=== PATIENT | male | born 1975 | race Caucasian/White ===

== ENCOUNTER 2019-03-27 14:02 | Inpatient (IN) | payer OTHER ==
[2019-03-27 17:27] VITALS: BMI 26.7
--- NOTE | 2019-03-27 18:01 | HP ---
CIWA Score - Admission Criteria [facility] Guidelines: Admission for Medically Managed Detox: Requires at least one of the followin. CIWA greater than 12 2. Seizures within the past 24 hours 3. Delirium tremens within the past 24 hours 4. Hallucinations within the past 24 hours 5. Acute intervention needed for co occurring medical disorder 6. Acute intervention needed for co occurring psychiatric disorder 7. Severe withdrawal that cannot be handled at a lower level of care (continued vomiting, continued diarrhea, abnormal vital signs) requiring intravenous medication and/or fluids 8. Admission ROS [facility] Chief Complaint: Withdrawal symptoms Allergies/Adverse Reactions: Allergies Allergy/AdvReac Type Severity Reaction Status Date / Time No Known Allergies Allergy Verified 03/27/19 17:09 History of Present Illness: 43 y.o. man with an extensive history crystal meth, ghb, xanax and Klonopin dependence is here seeking rehab services. He reports he was abstinent of illicit drug use for 3 years but relapsed in 08/2018. He reports he detoxed himself in the last 7 days at home Exam Limitations: No Limitations - Ebola screening Have you traveled outside of the country in the last 21 days: No Have you had contact with anyone from an Ebola affected area: No Do you have a fever: No - Review of Systems Constitutional: Diaphoresis, Unintentional Wgt. Loss EENT: reports: Tearing Respiratory: reports: No Symptoms reported Cardiac: reports: No Symptoms Reported GI: reports: No Symptoms Reported : reports: Burning Musculoskeletal: reports: No Symptoms Reported Integumentary: reports: No Symptoms Reported Neuro: reports: No Symptoms reported Endocrine: reports: No Symptoms Reported Hematology: reports: No Symptoms Reported Psychiatric: reports: Depressed Other Systems: Reviewed and Negative Patient History - Patient Medical History Hx Anemia: No Hx Asthma: No Hx Chronic Obstructive Pulmonary Disease (COPD): No Hx Cancer: No Hx Cardiac Disorders: No Hx Congestive Heart Failure: No Hx Hypertension: No Hx Hypercholesterolemia: No Hx Pacemaker: No HX Cerebrovascular Accident: No Hx Seizures: No Hx Dementia: No Hx Gastrointestinal Disorders: No Hx Liver Disease: No Hx Genitourinary Disorders: No Hx Sexually Transmitted Disorders: Yes (Reports being treated for syphillis, gonorrhea and chlamydia) Hx Renal Disease (ESRD): No Hx Thyroid Disease: No Hx Human Immunodeficiency Virus (HIV): Yes (Dx: 2009 on medications ) Hx Hepatitis C: No Hx Depression: Yes Hx Suicide Attempt: No Hx Bipolar Disorder: No Hx Schizophrenia: No - Patient Surgical History Past Surgical History: Yes Hx Appendectomy: Yes (1996) Other Surgical History: Hydrocele 1988 Anesthesia Reaction: No - PPD History Previous Implant?: Yes Documented Results: Negative w/o proof PPD to be Administered?: Yes - Reproductive History Patient is a Female of Child Bearing Age (11 -55 yrs old): No - Smoking Cessation Smoking history: Never smoked - Substance & Tx. History Hx Alcohol Use: No Hx Substance Use: Yes Substance Use Type: Tranquilizers Hx Substance Use Treatment: Yes (Rehab 3 years ago at [facility] ) - Substances abused Benzodiazepine (Klonopin) Substance route: Oral Frequency: Daily Amount used: 8MG Age of first use: 43 Date of last use: 03/19/19 Alprazolam (Xanax) Substance route: Oral Frequency: Daily Amount used: 4MG Age of first use: 41 Date of last use: 03/19/19 Crystal meth Substance route: Injection Frequency: 1-3 times last 30 days Amount used: Unsure Age of first use: 25 Date of last use: 03/19/19 GHB Substance route: Oral Frequency: 3-6 times per week Amount used: 1.5ml Age of first use: 25 Date of last use: 03/19/19 Family Disease History - Family Disease History Family Disease History: CA: Father (Nasal cancer ), Mother (Ovarian cancer- ) Admission Physical Exam S - Vital Signs Vital Signs: Vital Signs - 24 hr 03/27/19 03/27/19 17:09 17:40 Temperature 98.2 F 98.2 F Pulse Rate 78 78 Respiratory 20 20 Rate Blood Pressure 132/91 132/91 - Physical General Appearance: Yes: Tremorous, Anxious HEENTM: Yes: Hearing grossly Normal, Normocephalic, Normal Voice Respiratory: Yes: Chest Non-Tender, Lungs Clear, Normal Breath Sounds, No Respiratory Distress, No Accessory Muscle Use Neck: Yes: Within Normal Limits Breast: Yes: Breast Exam Deferred Cardiology: Yes: Regular Rhythm, Regular Rate Abdominal: Yes: Normal Bowel Sounds, Non Tender, Flat Genitourinary: Yes: Burning Back: Yes: Within Normal Limits, Normal Inspection Musculoskeletal: Yes: full range of Motion, Gait Steady, Pelvis Stable Extremities: Yes: Normal Capillary Refill, Normal Inspection, Normal Range of Motion, Non-Tender Neurological: Yes: Alert, Normal Mood/Affect, Normal Response Integumentary: Yes: Normal Color, Dry, Warm Lymphatic: Yes: Within Normal Limits - Diagnostic (1) Benzodiazepine dependence Current Visit: Yes Status: Chronic (2) HIV disease Current Visit: Yes Status: Chronic (3) History of syphilis Current Visit: Yes Status: Resolved (4) Low testosterone in male Current Visit: Yes Status: Suspected (5) History of thrombocytopenia Current Visit: Yes Status: Suspected (6) Gamma-hydroxybutyrate (GHB) use disorder, moderate, dependence Current Visit: Yes Status: Chronic Cleared for Admission S - Detox or Rehab [facility] Level of Care: Observation Bed Detox Regimen/Protocol: Not Applicable Claeared for Rehab Admission: Yes Breathalyzer - Breathalyzer Breathalyzer: 0 Urine Drug Screen - Test Device Lot number: [id number] Expiration date: 10/24/20 - Control Is test valid?: Yes - Results Drug screen NEGATIVE: Yes Inpatient Rehab Admission - Rehab Decision to Admit Inpatient rehab admission?: Yes - Initial Determination Are CD services needed?: Yes Free of communicable disease: No Not in need of hospitalization: Yes - Rehab Admission Criteria Previous failed treatment: Yes Poor recovery environment: Yes Comorbidities: Yes Lacks judgement: Yes Patient is meeting Inpatient Rehab admission criteria:: Yes
[2019-03-27] MEDS ORDERED: MAGNESIUM CITRATE 300 ML BOTTLE PO PRN (18:18)
[2019-03-27] MEDS ORDERED: ACETAMINOPHEN 325 MG TABLET (FP) PO PRN (18:18)
[2019-03-27] MEDS ORDERED: LOPERAMIDE HCL 2 MG CAPSULE PO PRN (18:18)
[2019-03-27] MEDS ORDERED: guaiFENesin 200 MG/10 ML 10 ML UNIT-DOSE CUPS PO PRN (18:18)
[2019-03-27] MEDS ORDERED: MENTHOL/PHENOL 1 EACH UD MM PRN (18:18)
[2019-03-27] MEDS ORDERED: hydrOXYzine PAMOATE 50 MG CAPSULE (FP) PO PRN (18:18)
[2019-03-27] MEDS ORDERED: P-EPHED 60MG/TRIPROLIDI 2.5MG TABLET PO PRN (18:18)
[2019-03-27] MEDS ORDERED: MAG HYDROX/AL HYDROX/SIMETH 30 ML UNIT-DOSE CUP PO PRN (18:18)
[2019-03-27] MEDS ORDERED: MAGNESIUM HYDROX 2400MG/30ML ORAL SUSPENSION 30 ML CUP PO PRN (18:18)
[2019-03-27] MEDS ORDERED: IBUPROFEN 400 MG TABLET (FP) PO PRN (18:18)
[2019-03-27] MEDS ORDERED: TUBERCULIN PPD 5 TU/0.1ML VIAL ID ONE (21:24)
[2019-03-27] MEDS: THIAMINE HCL 100 MG TABLET (FP) PO SCH (21:25)
[2019-03-27] MEDS: MELATONIN 5 MG TABLETS PO PRN (21:25)
--- NOTE | 2019-03-28 08:26 | EKG ---
Test Reason : Blood Pressure : / mmHG Vent. Rate : 074 BPM Atrial Rate : 074 BPM P-R Int : 154 ms QRS Dur : 088 ms QT Int : 356 ms P-R-T Axes : 040 006 034 degrees QTc Int : 395 ms NORMAL SINUS RHYTHM NORMAL ECG NO PREVIOUS ECGS AVAILABLE Confirmed by ALO PRINCE, GRACE ([id number]) on 03/28/2019 8:26:00 AM Referred By: Confirmed By:GRACE PRAJAPATI MD
[2019-03-28] MEDS: BICTEGRAV/EMTRICIT/TENOFOV (BIKTARVY) 50-200-25 MG TABLET PO SCH (09:00)
[2019-03-28] MEDS: PRENATAL VITAMINS W/ FOLIC ACID TABLET (FP) PO SCH (09:38)
[2019-03-28] MEDS ORDERED: EMTRICITAB/RILPIVIRI/TENOF ALA (ODEFSEY) TABLET PO SCH (10:00)
[2019-03-28 10:23] LABS: HEMATOCRIT 46.6 % (35.4-49); HEMOGLOBIN 15.8 GM/dL (11.7-16.9); MCH 31.4 pg (25.7-33.7); MCHC 33.9 g/dl (32.0-35.9); MEAN CELL VOLUME 92.9 fl (80-96); PLATELET COUNT 169 K/MM3 (134-434); RBC 5.02 M/mm3 (4.00-5.60); RDW 13.5 % (11.9-15.9); WHITE BLOOD COUNT 6.6 K/mm3 (4.0-10.0)
[2019-03-28 10:27] LABS: ALBUMIN 3.8 g/dl (3.4-5.0); ALK PHOS 63 U/L (45-117); ANION GAP 7 MMOL/L (8-16); BILIRUBIN,TOTAL 0.3 mg/dL (0.2-1); BLOOD UREA NITROGEN 13 mg/dL (7-18); CALCIUM 9.2 mg/dL (8.5-10.1); CHLORIDE 106 mmol/L (98-107); CO2 28 mmol/L (21-32); CREATININE 1.7 mg/dL (0.55-1.3); GLUCOSE,RANDOM 141 mg/dL (74-106); POTASSIUM 4.1 mmol/L (3.5-5.1); SGOT/AST 16 U/L (15-37); SGPT/ALT 30 U/L (13-61); SODIUM 142 mmol/L (136-145)
[2019-03-28 17:26] LABS: EPI CELLS 0.4 /HPF (0-5/HPF); PH,URINE 8.5 (5.0-8.0); URINE APPEARANCE CLOUDY; URINE BACTERIA 13.5 /hpf (NEGATIVE); URINE BILIRUBIN NEGATIVE (NEGATIVE); URINE CASTS 4 /lpf (0-8); URINE COLOR YELLOW; URINE GLUCOSE (UA) NEGATIVE (NEGATIVE); URINE KETONE NEGATIVE (NEGATIVE); URINE LEUK ESTERASE 3+ (NEGATIVE); URINE NITRITE POSITIVE (NEGATIVE); URINE PROTEIN NEGATIVE (NEGATIVE); URINE RBC 10 /hpf (0-4); URINE UROBILINOGEN 0.2 mg/dL (0.2-1.0); URINE WBC 400 /hpf (0-5)
[2019-03-28] MEDS: MELATONIN 5 MG TABLETS PO PRN (21:21)
[2019-03-28] MEDS: THIAMINE HCL 100 MG TABLET (FP) PO SCH (21:21)
--- NOTE | 2019-03-28 21:46 | PN ---
[facility] Progress Note Note: ASKED TO SEE PATIENT FOR C/O PINK URINE. CLIENT REPORTS LOWER ABD PAIN X2 DAYS WORSE WITH URINATION ASSOCIATED SPASM LIKE PAIN AND BURNING WHEN URINATING. HE REPORTS SEEING BLOOD IN HIS URINE TODAY. DENIES FEVERS CHILL, SOB, C.P.N/V/D, DIZZINESS. REQUESTING GC/CHL TESTING . Laboratory Tests 03/27/19 03/28/19 03/28/19 14:25 07:45 08:00 WBC 6.6 RBC 5.02 Hgb 15.8 Hct 46.6 MCV 92.9 MCH 31.4 MCHC 33.9 RDW 13.5 Plt Count 169 MPV 9.0 Sodium 142 Potassium 4.1 Chloride 106 Carbon Dioxide 28 Anion Gap 7 L BUN 13 Creatinine 1.7 H Creat Clearance w eGFR 43.80 Random Glucose 141 H Calcium 9.2 Total Bilirubin 0.3 AST 16 ALT 30 Alkaline Phosphatase 63 Total Protein 7.0 Albumin 3.8 Urine Color Yellow Urine Appearance Cloudy Urine pH 8.5 H Ur Specific [place] 1.009 L Urine Protein Negative Urine Glucose (UA) Negative Urine Ketones Negative Urine Blood 1+ H Urine Nitrite Positive H Urine Bilirubin Negative Urine Urobilinogen 0.2 Ur Leukocyte Esterase 3+ H Urine WBC (Auto) 400 Urine RBC (Auto) 10 Urine Casts (Auto) 4 U Epithel Cells (Auto) 0.4 Urine Bacteria (Auto) 13.5 AWAKE/ALERT/NAD LABS NOTED URINE: +NITRATES +BLOOD +LEUKOCYTE ESTERASE A- UTI P- URINE C&S START MACRODANTIN 100MG Q6 H X 7DAYS AFTER URINE IS SENT CONT TO MONITOR CLINICALLY GC/CHL TESTING ORDERED
[2019-03-28] MEDS: NITROFURANTOIN MACROCRYSTAL 50 MG CAPSULE (FP) PO SCH (23:19)
[2019-03-29] MEDS: NITROFURANTOIN MACROCRYSTAL 50 MG CAPSULE (FP) PO SCH ×3 (06:36→17:02)
[2019-03-29 07:03] VITALS: TEMP 97.7
[2019-03-29] MEDS: BICTEGRAV/EMTRICIT/TENOFOV (BIKTARVY) 50-200-25 MG TABLET PO SCH (08:47)
[2019-03-29] MEDS: PRENATAL VITAMINS W/ FOLIC ACID TABLET (FP) PO SCH (10:01)
[2019-03-29] MEDS: THIAMINE HCL 100 MG TABLET (FP) PO SCH (21:27)
[2019-03-29] MEDS: MELATONIN 5 MG TABLETS PO PRN (21:27)
[2019-03-30] MEDS: NITROFURANTOIN MACROCRYSTAL 50 MG CAPSULE (FP) PO SCH ×2 (00:11→06:23)
[2019-03-30 06:38] VITALS: BP 120/73; PULSE 75
[2019-03-30] MEDS: BICTEGRAV/EMTRICIT/TENOFOV (BIKTARVY) 50-200-25 MG TABLET PO SCH (08:02)
--- NOTE | 2019-03-30 10:15 | PN ---
[facility] Progress Note Note: PT DECLINED TO CONTINUE WITH REHAB FOR PERSONAL REASONS STATING "HERE IS NOT FOR ME, I'M AN OUTDOOR PERSON. BUT I'M HAPPY TO HAVE COME HERE AND RE-FOCUS". ALL EFORTS TO ENCOURAGE PT TO STAY IN TREATMENT HERE WAS UNSUCCESSFUL. PT REPORTS HE WILL BE GOING [facility]. PT REPORTS HE HAS A PCP, DR ELIEL DOSS AT [facility] ON [address] [place] [address]. PT REPORTS HE HAS HIS ANTIRETROVIRAL MEDICATION WITH HIM. PT WA BEING TREATED WITH NITROFURANTOIN FOR URINARY TRACT INFECTION SYMPTOMS. Home Medications Medication Instructions Recorded Bictegrav/Emtricit/Tenofov Ala 1 each PO MONTHLY 03/27/19 [Biktarvy 50-200-25 mg Tablet] Emtricitab/Rilpiviri/Tenof Ala 1 each PO DAILY 03/27/19 [Odefsey Tablet] Emtricitab/Rilpiviri/Tenof Ala 1 each PO DAILY 03/27/19 [Odefsey Tablet] Gabapentin [Neurontin -] 300 mg PO HS 03/27/19 Meclizine HCl [Antivert -] 25 mg PO TID 03/27/19 Nitrofurantoin Macrocrystal 100 mg PO Q6HPO #28 capsule 03/30/19 [Macrodantin -] Vital Signs - 24 hr 03/30/19 03/30/19 03/30/19 00:30 03:30 06:37 Temperature 97.7 F Pulse Rate 75 Respiratory 16 16 18 Rate Blood Pressure 120/73 Laboratory Tests 03/27/19 03/28/19 03/28/19 14:25 07:45 07:45 WBC RBC Hgb Hct MCV MCH MCHC RDW Plt Count MPV Sodium 142 Potassium 4.1 Chloride 106 Carbon Dioxide 28 Anion Gap 7 L BUN 13 Creatinine 1.7 H Creat Clearance w eGFR 43.80 Random Glucose 141 H Calcium 9.2 Total Bilirubin 0.3 AST 16 ALT 30 Alkaline Phosphatase 63 Total Protein 7.0 Albumin 3.8 Urine Color Yellow Urine Appearance Cloudy Urine pH 8.5 H Ur Specific [place] 1.009 L Urine Protein Negative Urine Glucose (UA) Negative Urine Ketones Negative Urine Blood 1+ H Urine Nitrite Positive H Urine Bilirubin Negative Urine Urobilinogen 0.2 Ur Leukocyte Esterase 3+ H Urine WBC (Auto) 400 Urine RBC (Auto) 10 Urine Casts (Auto) 4 U Epithel Cells (Auto) 0.4 Urine Bacteria (Auto) 13.5 RPR Titer Nonreactive Hep C Ab Diagnostic 03/28/19 03/28/19 07:45 08:00 WBC 6.6 RBC 5.02 Hgb 15.8 Hct 46.6 MCV 92.9 MCH 31.4 MCHC 33.9 RDW 13.5 Plt Count 169 MPV 9.0 Sodium Potassium Chloride Carbon Dioxide Anion Gap BUN Creatinine Creat Clearance w eGFR Random Glucose Calcium Total Bilirubin AST ALT Alkaline Phosphatase Total Protein Albumin Urine Color Urine Appearance Urine pH Ur Specific [place] Urine Protein Urine Glucose (UA) Urine Ketones Urine Blood Urine Nitrite Urine Bilirubin Urine Urobilinogen Ur Leukocyte Esterase Urine WBC (Auto) Urine RBC (Auto) Urine Casts (Auto) U Epithel Cells (Auto) Urine Bacteria (Auto) RPR Titer Hep C Ab Diagnostic <0.1 Microbiology 03/29/19 09:53 Urine - Urine Clean Catch Urine Culture - Final NO GROWTH OBTAINED PENDING SEROLOGY TESTS: C. TRICHOMATIS AND N. GONORRHOEAE. PLAN:PT SIGNED OUT AMA PT STATES HE WILL GO TO HIS PMD/CLINIC TO FOLLOW UP WITH RETEST AND DOES NOT WANT TO WAIT FOR RESULT. HOWEVER, PT LEFT A CALL BACK PHONE # [phone] WHEN ABOVE PENDING RESULTS ARE AVAILABLE.
[2019-03-30] MEDS: PRENATAL VITAMINS W/ FOLIC ACID TABLET (FP) PO SCH (11:17)
== END 2019-03-30 10:45 | disposition left against medical advice (07) | DRG 770 ==
LOC: YASAS 14:02 → Y5N 18:12
PROVIDERS: ADMIT Neuromusculoskeletal Medicine & OMM; ATTEND Neuromusculoskeletal Medicine & OMM
PROC: HZ42ZZZ Group Counseling for Substance Abuse Treatment, Cognitive-Behavioral (ICD-10-PCS; principal; 2019-03-27)
DX: F13.20 Sedative, hypnotic or anxiolytic dependence, uncomplicated (principal); F15.10 Other stimulant abuse, uncomplicated; F32.9 Major depressive disorder, single episode, unspecified; Z21 Asymptomatic human immunodeficiency virus [HIV] infection status; N39.0 Urinary tract infection, site not specified; R79.89 Other specified abnormal findings of blood chemistry; R73.9 Hyperglycemia, unspecified; Z86.2 Personal history of diseases of the blood and blood-forming organs and certain disorders involving the immune mechanism; Z86.19 Personal history of other infectious and parasitic diseases; E34.8 Other specified endocrine disorders
CPT/HCPCS: 36415; 80053; 81003; 85027; 86593; 86803; 87086; 87491; 87591; 93005; 93010